=== PATIENT | male | born 1965 | race Caucasian/White ===

== ENCOUNTER 2019-02-14 14:15 | Outpatient (CLI) | payer BC, SELFPAY ==
--- NOTE | 2019-02-14 14:19 | XR_ITS ---
WS: [id number] Lumbar spine with flexion, extension, and neutral lateral, 02/14/2019 Clinical Data: Low back pain Comparison: Lumbar spine x-ray, 06/24/2018. Findings: The minimal retrolisthesis of 0.4 cm at L1-L2 and 0.2 cm at L2-L3 remains unchanged. No limitation of motion or subluxation is seen. There is disc space narrowing at all lumbar disc levels. Anterior osteophyte formation is seen. No co mpression fractures are noted. Several joint arthritis from L3-4 through L5-S1 is again seen. XR/XR lumbar spine f/e only [id number] Impression: 1. Minimal posterior subluxation at L1-L2 and L2-L3 unchanged. 2. No change in osteoarthritis and degenerative disc disease.
== END 2019-02-14 14:16 | disposition home or self-care (01) ==
LOC: WPI 14:19
PROVIDERS: Family Provider Family Medicine; PCP Family Medicine; Referring Provider Family Medicine; Visit Provider Licensed Practical Nurse
DX: M43.5X6 Other recurrent vertebral dislocation, lumbar region (principal); M54.5 Low back pain
CPT/HCPCS: 72120

== ENCOUNTER → 2019-06-09 13:13 | Outpatient (BNVA) | payer BC, SELFPAY | PROVIDERS: Family Provider Family Medicine; PCP Family Medicine; Referring Provider Specialist; Visit Provider Anesthesiology Pain Medicine | DX: M54.9 Dorsalgia, unspecified (principal) | CPT/HCPCS: 99203 ==

== ENCOUNTER → 2019-06-24 08:17 | Outpatient (BNVA) | payer BC, SELFPAY | PROVIDERS: Family Provider Family Medicine; PCP Family Medicine; Visit Provider Anesthesiology Pain Medicine | DX: M51.17 Intervertebral disc disorders with radiculopathy, lumbosacral region (principal); M54.9 Dorsalgia, unspecified | CPT/HCPCS: 64483; 64484; J1040; J2001; J3490 ==

== ENCOUNTER → 2019-07-08 09:02 | Outpatient (BNVA) | payer BC, SELFPAY | PROVIDERS: Family Provider Family Medicine; PCP Family Medicine; Visit Provider Anesthesiology Pain Medicine | DX: M54.9 Dorsalgia, unspecified (principal) | CPT/HCPCS: 99212; 99213 ==

== ENCOUNTER → 2019-07-18 13:48 | Outpatient (BNVA) | payer BC, SELFPAY | PROVIDERS: Family Provider Family Medicine; PCP Family Medicine; Visit Provider Anesthesiology Pain Medicine | DX: M51.17 Intervertebral disc disorders with radiculopathy, lumbosacral region (principal) | CPT/HCPCS: 64483; J1040; J2001; J3490 ==

== ENCOUNTER → 2019-08-01 08:35 | Outpatient (BNVA) | payer BC, SELFPAY | PROVIDERS: Family Provider Family Medicine; PCP Family Medicine; Visit Provider Anesthesiology Pain Medicine | DX: M43.16 Spondylolisthesis, lumbar region (principal); M51.16 Intervertebral disc disorders with radiculopathy, lumbar region; M48.061 Spinal stenosis, lumbar region without neurogenic claudication; M51.17 Intervertebral disc disorders with radiculopathy, lumbosacral region; M54.9 Dorsalgia, unspecified | CPT/HCPCS: 99213 ==

== ENCOUNTER 2020-07-06 07:53 | Outpatient (CLI) | payer BC, SELFPAY ==
--- NOTE | 2020-07-06 | CT_ITS ---
WS: [id number] CT NECK TECHNIQUE: Contrast-enhanced CT of the neck with coronal and sagittal reformatted images. CLINICAL INFORMATION: NECK MASS COMPARISON: None. DLP: 1432.[address] scans at [facility] use at least one of these dose optimization techniques: automat ed exposure control; mA and/or kV adjustment per patient size (includes targeted exams where dose is matched to clinical indication); or iterative reconstruction. FINDINGS: Normal parotid glands. Normal submandibular glands. Tonsillar calcifications. Normal parapharyngeal f at. Normal posterior nasopharynx. No evidence of supraglottic or glottic mass. Normal subglottic airw ay. No cervical lymphadenopathy. Palpable marker overlying the midline neck. This is just anterior to the hyoid bone. No evidence of abnormal mass or lesion. There is an incidental prominent vein in this ar ea as well. Lung apices are well aerated. Mild spondylitic changes cervical spine. Mastoid air cells and paranasal sinuses are well aerated. CT/CT neck w con* [id number] IMPRESSION: 1. No suspicious abnormalities in the area of palpable concern. Underlying hyo id bone and incidental underlying vein. 2. Normal submandibular glands. 3. No cervical lymphadenopathy. 4. No other significant findings.
[2020-07-06] MEDS: iohexol 300 mg/mL 100 mL Btl IV (08:34)
== END 2020-07-06 07:54 | disposition home or self-care (01) ==
PROVIDERS: PCP Family Medicine; Visit Provider Family Medicine
DX: R22.1 Localized swelling, mass and lump, neck (principal)
CPT/HCPCS: 70491; Q9967